=== PATIENT | female | born 1970 | race Caucasian/White ===

== ENCOUNTER 2017-12-06 03:58 | Emergency (ER) | payer OTHER, SELFPAY ==
[2017-12-06 04:00] VITALS: BP 167/86; PULSE 107; RESP 17; TEMP 37.1; O2SAT 99; BMI 35.0
--- NOTE | 2017-12-06 04:13 | EKG12_ITS ---
Test Reason : DIZZINESS Blood Pressure : / mmHG Vent. Rate : 086 BPM Atrial Rate : 086 BPM P-R Int : 152 ms QRS Dur : 078 ms QT Int : 384 ms P-R-T Axes : 041 025 031 degrees QTc Int : 459 ms Normal sinus rhythm Normal ECG Confirmed by RADHIKA PADILLA, GERRY ([id number]), photography editor DAMIR WINTER ([id number]) on 12/08/2017 2:26:26 PM Referred By: JOE Confirmed By:GERRY GARRIDO MD
--- NOTE | 2017-12-06 04:15 | RAD_ITS ---
STUDY: X-RAY CHEST REASON FOR EXAM: Female, 47 years old. Chest pain TECHNIQUE: Single AP portable view of the chest. COMPARISON: 09/21/2013 FINDINGS: The lungs are clear and expanded. There is no demonstrated pleural abnormality. Normal size heart. Normal mediastinum and quynh. Normal visualized pulmonary arteries. Normal visualized aortic arch and descending thoracic aorta. Normal visualized thoracic spine. Normal visualized ribs, clavicles, and shoulders. There is no demonstrated abnormality of the visualized soft tissue structures of the upper abdomen. RAD/Chest 1 View (Portable) IMPRESSION: Normal x-ray examination of the chest. Electronically Signed: Eduardo Grider DO at 4:31 EDT Tel , Service support ,
[2017-12-06 04:19] VITALS: BP 155/64; PULSE 76; RESP 16; O2SAT 99
[2017-12-06] MEDS: 0.9% Normal Saline 1,000 ML 150 ML IV (04:24)
[2017-12-06 04:27] LABS: Absolute Lymphocyte Count 1.95 X10^3/ul (0.83-4.51); Basophil# 0.04 X10^3/uL; Basophil% 0.6 % (0-1); Eosinophils% 4.4 % (0-5); Hematocrit 40.9 % (37-47); Hemoglobin 13.8 g/dl (12.0-15.0); Lymphocyte # 1.95 X10^3/ul (4.0); Lymphocyte % 28.8 % (19-41); Mean Corp Hgb Conc 33.7 g/gl (32-36); Mean Corpuscular Hgb 30.3 pg (27.0-32.0); Mean Corpuscular Volume 89.9 fL (81-99); Mean Platelet Vol. 10.9 fl (6.2-12.0); Monocyte# 0.48 X10^3/uL; Monocyte% 7.1 % (0-10); Neutrophil # 3.99 X10^3/uL (2.7-7.7); Platelet Count 273 K/mm3 (150-450); RBC Distribution Width CV 12.3 % (11.6-14.6); Red Blood Count 4.55 M/mm3 (4.2-5.4); White Blood Count 6.8 K/mm3 (4.4-11.0)
[2017-12-06 04:39] LABS: POSITIVE COUNT NO; POSITIVE DIFFERENTIAL NO; POSITIVE MORPHOLOGY NO
[2017-12-06 04:50] LABS: Anion Gap 11 (5-15); BUN 17 mg/dL (7-18); BUN/Creat Ratio 22.2 RATIO (10-20); Calcium,Total 9.9 mg/dL (8.5-10.1); Chloride 99 mmol/L (98-107); Creatinine, Serum 0.77 mg/dL (0.55-1.02); EST Glomerular Filtration Rate 85 mL/min (>60); Est Glom Filt Rate - Afr Amer 103 mL/min (>60); Estimated Creatinine Clearance 83.64 ml/min; Glucose 183 mg/dL (74-106); Potassium 3.5 mmol/L (3.5-5.1); Sodium Level 137 mmol/L (136-145); Thyroid Stim Hormone (TSH) 1.71 uIU/mL (0.358-3.74)
[2017-12-06 05:20] VITALS: BP 134/82; PULSE 79; RESP 12; O2SAT 96
--- NOTE | 2017-12-06 05:34 | ED.VISSUMM ---
- ER Visit Summary Date of Service: 12/06/17 Chief Complaint: Chest tightness, dizzy History of Present Illness: The patient is a 47 F who states she was at work tonight and developed lightheadedness and mild nausea. She checked her blood pressure noted it was elevated. She then developed some mild chest tightness. Patient has a history of diabetes, hypertension, high cholesterol, kidney stones, back pain. She was seen a few years ago with palpitations but noted that an event monitor did not reveal any arrhythmias. Patient had just eaten prior to this episode this evening. Physical Examination: Blood pressure on arrival is 167/86, temperature 98.8, heart rate 107, respiratory rate 17, pulse ox 99% on room air. Patient was observed ambulating to the room without difficulty. Head neck examination is unremarkable. Heart is regular rate and rhythm with a heart rate of 89 at the time of my exam. Lung sounds are clear. Abdomen is soft and nontender. Extremity examination reveals no calf tenderness or edema. Neuro exam is unremarkable. Test Results: EKG is sinus 86 with no sign of acute ischemia. CBC and chemistry studies significant only for glucose of 183. Troponin is less than 0.015. TSH is normal. Portable chest x-ray is normal. Emergency Department Course and Treatment: Patient is given IV fluids. On repeat evaluation she is resting comfortably. Blood pressure is currently 134/82 with a heart rate of 79. At this time patient feels improved. She will be discharged home with her at this time. She is to follow-up with her primary care physician and return for any worsening symptoms or other concerns. Treatment Plan: [] Disposition: Discharge Impression: 1. Atypical chest pain 2. Lightheadedness, improved This note was generated with [employer] dictation software. It may contain incorrect words, spelling, and punctuation that were not noted in review of the chart prior to signing ED Disposition - Plan for ED Patient: Chief Complaint: Dizziness Referrals: Leiws Snell MD [Primary Care Provider] -
--- NOTE | 2017-12-06 05:37 | ED.DCSUM_ITS ---
- ER Visit Summary Date of Service: 12/06/17 Chief Complaint: Chest tightness, dizzy History of Present Illness: The patient is a 47 F who states she was at work tonight and developed lightheadedness and mild nausea. She checked her blood pressure noted it was elevated. She then developed some mild chest tightness. Patient has a history of diabetes, hypertension, high cholesterol, kidney stones , back pain. She was seen a few years ago with palpitations but noted that an event monitor did not reveal any arrhythmias. Patient had just eaten prior to this episode this evening. Physical Examination: Blood pressure on arrival is 167/86, temperature 98.8, heart rate 107, respiratory rate 17, pulse ox 99% on room air. Patient was observed ambulating to the room without difficulty. Head neck examination is unremarkable. Heart is regular rate and rhythm with a heart rate of 89 at the time of my exam. Lung sounds are clear. Abdomen is soft and nontender. Extremity examination reveals no calf tenderness or edema. Neuro exam is unremarkable. Test Results: EKG is sinus 86 with no sign of acute ischemia. CBC and chemistry studies significant only for glucose of 183. Troponin is less than 0.015. TSH is normal. Portable chest x-ray is normal. Emergency Department Course and Treatment: Patient is given IV fluids. On repeat evaluation she is resting comfortably. Blood pressure is currently 134/ 82 with a heart rate of 79. At this time patient feels improved. She will be discharged home with her at this time. She is to follow-up with her primary care physician and return for any worsening symptoms or other concerns. Treatment Plan: [] Disposition: Discharge Impression: 1. Atypical chest pain 2. Lightheadedness, improved This note was generated with [employer] dictation software. It may contain incorrect words, spelling, and punctuation that were not noted in review of the chart prior to signing ED Disposition - Plan for ED Patient: Chief Complaint: Dizziness Referrals: Lewis Snell MD [Primary Care Provider] -
--- NOTE | 2017-12-06 05:37 | ED.DEP ---
ED Disposition - Plan for ED Patient: Disposition: Home or Assisted Living Chief Complaint: Dizziness Instructions: ED Chest Pain Atypical Unkn Cause Referrals: Lewis Snell MD [Primary Care Provider] - 1 Week
[2017-12-06 05:48] VITALS: BP 134/81; PULSE 95; RESP 17; O2SAT 96
== END 2017-12-06 05:49 | disposition home or self-care (01) ==
PROVIDERS: Emergency Provider Emergency Medicine; Family Provider Family Medicine; PCP Family Medicine
DX: R07.89 Other chest pain (principal); R42 Dizziness and giddiness; E11.9 Type 2 diabetes mellitus without complications; I10 Essential (primary) hypertension; E78.00 Pure hypercholesterolemia, unspecified; R11.0 Nausea
CPT/HCPCS: 71045; 80048; 84443; 84484; 85025; 93005; 99284; J7030; A4216

== ENCOUNTER → 2018-03-10 10:27 | Outpatient (CLI) | payer OTHER, SELFPAY ==
--- NOTE | 2018-03-10 10:29 | BI_ITS ---
MAMMOGRAPHY - BILATERAL SCREENING REASON FOR EXAM: Female, 48 years old. Routine annual screening examination. PERTINENT HISTORY: Grandmother with breast cancer. TECHNIQUE: Digital bilateral breast nishant (3D mammographic acquisition) in the CC and MLO projections. 2-D mediolateral oblique (MLO) and craniocaudad (CC) views of both breasts were obtained. CAD: Full Field Digital Mammography with Computer Added Detection was performed. COMPARISON: Comparison is made with prior study dated February 25, 2017 and January 10, 2016. FINDINGS: Breast Composition: The breasts are almost entirely fatty. There are no dominant masses or suspicious calcifications. Stable small benign-appearing bilateral axillary No other significant abnormalities are identified. There has been no significant change since the prior study. BI/SCREENING MAMM (CAD), BILAT IMPRESSION: Stable bilateral screening mammogram. Yearly follow-up mammogram recommended. (A) ASSESSMENT CATEGORY: BIRADS Category 2: Benign. A letter regarding these results will be sent to the patient by the facility within 30 days. Approximately 10% of breast cancers are not detected by mammography. A normal mammogram should not delay biopsy of a clinically suspicious abnormality. [id number] Electronically Signed: Monico Neil MD at 15:23 EST Tel [phone], Service support ,
== END ==
PROVIDERS: Family Provider Family Medicine; PCP Family Medicine; Visit Provider Obstetrics & Gynecology
DX: Z12.31 Encounter for screening mammogram for malignant neoplasm of breast (principal)
CPT/HCPCS: 77063; 77067

== ENCOUNTER → 2019-04-17 10:41 | Outpatient (CLI) | payer OTHER, SELFPAY ==
--- NOTE | 2019-04-17 10:43 | BI_ITS ---
MAMMOGRAPHY - BILATERAL SCREENING REASON FOR EXAM: Female, 49 years old. Routine annual screening examination. PERTINENT HISTORY: Grandmother with breast cancer. TECHNIQUE: Digital bilateral breast bernie (3D mammographic acquisition) in the CC and MLO projections. 2-D mediolateral oblique (MLO) and craniocaudad (CC) views of both breasts were obtained. CAD: Full Field Digital Mammography with Computer Added Detection was performed. COMPARISON: Comparison is made with prior study dated March 10, 2018 and February 25, 2017. FINDINGS: Breast Composition: The breasts are almost entirely fatty. There are no dominant masses or suspicious calcifications. No other significant abnormalities are identified. There has been no significant change since the prior study. BI/SCREEN MAMM (CAD) W/BERNIE BILAT IMPRESSION: Stable bilateral screening mammogram. Yearly follow-up mammogram recommended. (A) ASSESSMENT CATEGORY: BIRADS Category 1: Negative. A letter regarding these results will be sent to the patient by the facility within 30 days. Approximately 10% of breast cancers are not detected by mammography. A normal mammogram should not delay biopsy of a clinically suspicious abnormality. [id number] Electronically Signed: Monico Neil, at 12:21 EST , Service support ,
== END ==
PROVIDERS: Family Provider Family Medicine; PCP Family Medicine; Referring Provider Obstetrics & Gynecology; Visit Provider Obstetrics & Gynecology
DX: Z12.31 Encounter for screening mammogram for malignant neoplasm of breast (principal)
CPT/HCPCS: 77063; 77067

== ENCOUNTER → 2020-04-18 10:37 | Outpatient (CLI) | payer OTHER, SELFPAY ==
--- NOTE | 2020-04-18 10:38 | BI_ITS ---
MAMMOGRAPHY - BILATERAL SCREENING REASON FOR EXAM: Female, 50 years old. Routine annual screening examination. PERTINENT HISTORY: Non-contributory. TECHNIQUE: Digital bilateral breast bernie (3D mammographic acquisition) in the CC and MLO projections. 2-D mediolateral oblique (MLO) and craniocaudad (CC) views of both breasts were obtained. CAD: Full Field Digital Mammography with Computer Added Detection was performed. COMPARISON: Comparison is made with prior study dated 04/17/2019 and 03/10/2018. FINDINGS: Breast Composition: The breasts are almost entirely fatty. There are no dominant masses or suspicious calcifications. Stable small benign-appearing bilateral axillary lymph nodes. No other significant abnormalities are identified. There has been no significant change since the prior study. BI/SCRN MAMM (CAD)W/BERNIE BILAT IMPRESSION: Stable bilateral screening mammogram. Yearly follow-up mammogram recommended. (A) ASSESSMENT CATEGORY: BIRADS Category 2: Benign. A letter regarding these results will be sent to the patient by the facility within 30 days. Approximately 10% of breast cancers are not detected by mammography. A normal mammogram should not delay biopsy of a clinically suspicious abnormality. [id number] Electronically Signed: Monico Neil MD at 12:10 EST , Service support ,
== END ==
PROVIDERS: PCP Family Medicine; Referring Provider Student in an Organized Health Care Education/Training Program; Visit Provider Student in an Organized Health Care Education/Training Program
DX: Z12.31 Encounter for screening mammogram for malignant neoplasm of breast (principal)
CPT/HCPCS: 77063; 77067

== ENCOUNTER → 2020-05-21 15:07 | Outpatient (CLI) | payer OTHER, SELFPAY | PROVIDERS: PCP Family Medicine; Referring Provider Student in an Organized Health Care Education/Training Program; Visit Provider Student in an Organized Health Care Education/Training Program | DX: Z00.00 Encounter for general adult medical examination without abnormal findings (principal) ==

== ENCOUNTER 2020-11-16 14:25 | Emergency (ER) | payer OTHER, SELFPAY ==
[2020-11-16 14:26] VITALS: BP 160/84; PULSE 128; RESP 18; TEMP 36.6; O2SAT 94; BMI 35.5
[2020-11-16 17:33] VITALS: BP 145/92; PULSE 114; RESP 16; O2SAT 92
--- NOTE | 2020-11-16 17:55 | ED.VIS.FEGU ---
HPI HPI - Female History of Present Illness Chief Complaint: Female C/O Informant: patient Pain Pain: Positive for Vulvar Pain Onset: Days (2) Context: Gradual Onset Timing: Continuous Quality: Positive for Burning Worsened by: - (Sitting) Bleeding Issue: Negative for Vaginal bleeding, Passing clots and Passing tissue Vaginal Discharge Quality: Positive for Thin Associated Symptoms Associated Symptoms: Positive for Dysuria Narrative Narrative: Patient presents with possible yeast infection that has been getting worse over the past 2 days. Patient states her perineal area has become swollen and itching. Patient admits to watery discharge. Patient states she has been using clotrimazole cream with minimal relief. Patient admits to some dysuria but denies any hematuria or frequency. Patient states [facility] and had a urinalysis done which was negative. Patient states that they were going to order her a dose of Diflucan. Patient was upset because it did not look or do any cultures. Patient then came to the emergency department. [facility] Medical History (Updated 11/16/20 @ 19:[address] Ren Dalton DO) Diabetes Edema Hypertension Home Medications hydrochlorothiazide 25 mg PO DAILY 07/11/13 [History Last Taken Unknown] losartan [Cozaar] 100 mg PO DAILY 07/11/13 [History Last Taken Unknown] metformin 500 mg PO TID 07/11/13 [History Last Taken Unknown] dulaglutide [Trulicity] 1.5 mg SUBCUT QWEEK 11/16/20 [History Last Taken Unknown] fluconazole [Diflucan] 150 mg PO DAILY #1 tab 11/16/20 [Rx Last Taken Unknown] glimepiride 4 mg PO BID 11/16/20 [History Last Taken Unknown] Allergy/AdvReac Type Severity Reaction Status Date / Time No Known Allergies Allergy Verified 11/16/20 13:16 Surgical History (Updated 11/16/20 @ 17:[address] Ren Dlaton DO) H/O dilation and curettage Social History Smoking Status: Never smoker ROS ROS ED Constitutional Constitutional ED: Denies chills or fever(s) Eyes Eyes: Denies blurry vision or change in vision ENT ENT ED: Denies rhinorrhea or sore throat Cardiovascular Cardiovascular: Denies chest pain or palpitations Respiratory/Chest Respiratory/Chest: Denies cough or dyspnea Gastrointestinal Gastrointestinal: Denies nausea or vomiting Genitourinary Genitourinary ED: Reports dysuria; Denies hematuria Musculoskeletal Musculoskeletal: Denies back pain or neck pain Integumentary Denies abscess or rash Neurologic Neurologic: Reports headache(s); Denies weakness Allergic/Immunologic Allergic/Immunologic ED: Denies mouth swelling or urticaria EXAM Physical Exam Const Vital Signs: 11/16/20 14:26 11/16/20 17:33 Temperature 98 F Temperature Source Temporal Pulse Rate 128 H 114 H Respiratory Rate 18 16 Blood Pressure 160/84 H 145/92 H Blood Pressure Mean 109 109 Pulse Ox 94 92 Oxygen Delivery Method Room Air Room Air Positive well nourished, well developed and obese General Appearance ED: well developed Nutritional Appearance: obese HEENT Reports moist mucous membranes Neck supple and no JVD Resp normal respiratory effort and clear to auscultation bilaterally Cardio regular rate, regular rhythm and no murmurs GI normal to inspection, nondistended, normoactive bowel sounds, soft to palpation and non-tender Palpation: soft Speculum Exam - Vagina: vaginal swelling and vaginal discharge white Extremity normal to inspection General Extremety ED: Negative for edema or tenderness General Extremity: Negative for edema Neuro oriented x3, CN's II-XII intact bilaterally and no sensory deficits noted Sensorium / Orientation: alert Motor Exam: strength 5/5 throughout Psych mental status grossly normal Skin no rashes or lesions noted MDM MDM MDM Narrative Medical decision making narrative: CBC and comprehensive metabolic profile were obtained and were within normal limits. FLORES prep was obtained. There are no fungal elements seen. However, on vaginal exam there was some mild thick white vaginal discharge. This appeared to be consistent with vaginal candidiasis. Patient was given a dose of Diflucan here. Patient was given a prescription for 1 Diflucan tablet to take in a week if her symptoms are persistent. Patient was instructed to follow-up with her primary care physician in 5 to 7 days. Patient understood and was agreeable with the plan. All questions were answered. Lab Data Attestation: I reviewed the patient's lab results. Labs: Laboratory Results - last 24 hr 11/16/20 11/16/20 17:56 17:56 WBC 12.0 H RBC 4.67 Hgb 13.9 Hct 42.3 MCV 90.6 MCH 29.8 MCHC 32.9 RDW Std Deviation 39.7 RDW Coeff of Eyad 12.0 Plt Count 305 MPV 11.3 Immature Gran % (Auto) 0.200 Neut % (Auto) 68.7 Lymph % (Auto) 17.2 L Chambers % (Auto) 6.5 Eos % (Auto) 7.2 H Baso % (Auto) 0.2 Absolute Neuts (auto) 8.3 H Absolute Lymphs (auto) 2.06 Nucleated RBC % 0 Sodium 133 L Potassium 3.7 Chloride 97 L Carbon Dioxide 28.0 Anion Gap 8 BUN 12 Creatinine 0.68 Estim Creat Clear Calc 91.63 Est GFR (MDRD) Af Amer 117 Est GFR (MDRD) Non-Af 97 BUN/Creatinine Ratio 17.6 Glucose 185 H Calcium 10.2 H Total Bilirubin 1.00 AST 84 H ALT 118 H Alkaline Phosphatase 74 Total Protein 7.5 Albumin 3.6 Globulin 3.9 Albumin/Globulin Ratio 0.9 Discharge Plan Triage Chief Complaint: Female C/O ED Provider: Ren Dalton Dx/Rx/DC Orders Clinical Impression: Vaginal candidiasis Instructions: ED CORNELIA VAGINITIS Prescriptions: New fluconazole [Diflucan] 150 mg tablet 150 mg PO DAILY Qty: 1 RF: 0 No Action metformin 500 MG tablet 500 mg PO TID RF: 0 hydrochlorothiazide 25 MG tablet 25 mg PO DAILY RF: 0 losartan [Cozaar] 100 MG tablet 100 mg PO DAILY RF: 0 glimepiride 4 mg Tablet 4 mg PO BID RF: 0 Trulicity 1.5 mg/0.5 mL Pen Injector 1.5 mg SUBCUT QWEEK RF: 0 Primary Care Provider: Lewis Snell Referrals: Lewis Snell MD [Primary Care Provider] - 5-7 Days Disposition Disposition: Home, Self Care
[2020-11-16 18:18] LABS: Absolute Lymphocyte Count 2.06 X10^3/uL (0.83-4.51); Absolute Neutrophil Count 8.3 X10^3/uL (2.0-7.7); Basophil# 0.02 X10^3/uL; Basophil% 0.2 % (0-1); Eosinophil# 0.87 X10^3/uL; Eosinophils% 7.2 % (0-5); Hematocrit 42.3 % (37-47); Hemoglobin 13.9 g/dL (12.0-15.0); Lymphocyte # 2.06 X10^3/ul (0.83-4.51); Lymphocyte % 17.2 % (19-41); Mean Corp Hgb Conc 32.9 g/dL (32-36); Mean Corpuscular Hgb 29.8 pg (27.0-32.0); Mean Corpuscular Volume 90.6 fL (81-99); Mean Platelet Vol. 11.3 fl (6.2-12.0); Monocyte# 0.78 X10^3/uL; Monocyte% 6.5 % (0-10); NRBC Flagged by Analyzer 0 % (0-5); Neutrophil # 8.25 X10^3/uL (2.7-7.7); Neutrophil % 68.7 % (47-70); Platelet Count 305 K/mm3 (150-450); RBC Distribution Width SD 39.7 fl (35.1-43.9); Red Blood Count 4.67 M/mm3 (4.2-5.4)
[2020-11-16 18:35] LABS: ALB/GLOB Ratio 0.9 RATIO (0.9-2.4); AST(SGOT) 84 U/L (15-37); Alanine Aminotransfer ALT/SGPT 118 U/L (13-56); Albumin, Serum 3.6 g/dL (3.2-5.0); Alkaline Phosphatase 74 U/L (45-117); Anion Gap 8 (5-15); BUN 12 mg/dL (7-18); BUN/Creat Ratio 17.6 RATIO (10-20); Calcium,Total 10.2 mg/dL (8.5-10.1); Chloride 97 mmol/L (98-107); Creatinine, Serum 0.68 mg/dL (0.55-1.02); EST Glomerular Filtration Rate 97 mL/min (>60); Est Glom Filt Rate - Afr Amer 117 mL/min (>60); Estimated Creatinine Clearance 91.63 ml/min; Globulin 3.9 g/dL (2.2-4.2); Glucose 185 mg/dL (74-106); Potassium 3.7 mmol/L (3.5-5.1); Protein, Total 7.5 g/dL (6.4-8.2); Sodium Level 133 mmol/L (136-145)
[2020-11-16] MEDS: FLUCONAZOLE 150 MG TABLET PO (19:17)
[2020-11-16 19:19] VITALS: RESP 16
== END 2020-11-16 19:19 | disposition home or self-care (01) ==
PROVIDERS: Emergency Provider Emergency Medicine; PCP Family Medicine
DX: B37.3 Candidiasis of vulva and vagina (principal); E11.9 Type 2 diabetes mellitus without complications; I10 Essential (primary) hypertension; Z79.84 Long term (current) use of oral hypoglycemic drugs; Z79.899 Other long term (current) drug therapy; E66.9 Obesity, unspecified
CPT/HCPCS: 36415; 80053; 85025; 87210; 99283

== ENCOUNTER → 2020-11-17 16:22 | Outpatient (CLI) | payer OTHER, SELFPAY ==
[2020-11-17 16:24] LABS: Mucous, Urine 0 SEEN /hpf (<or=2+)
[2020-11-17 16:33] LABS: Color, Urine Yellow (Yellow); Glucose, Dipstick 1000 mg/dl (Normal); Ketone-Dipstick 5 mg/dl (Negative); Leukocyte Esterase-Dipstick 25 /ul (Negative); Nitrite-Dipstick Negative (Negative); Occult Blood-Urine Negative /ul (Negative); Protein-Dipstick 15 mg/dl (Negative); Specific Gravity, Urine 1.015 (1.002-1.030); Urine Bilirubin Dipstick Negative (Negative); Urine Clarity Cloudy (Clear); Urine Urobilinogen Normal (Normal)
[2020-11-17 16:56] LABS: Bacteria RARE /hpf (None Seen); White Blood Cells 0-5 SEEN /hpf (0-5)
[2020-11-17 16:58] LABS: Red Blood Cells-Urine 0-5 SEEN /hpf (0-5)
[2020-11-17 17:00] LABS: Squamous Epithelial Cells - UA 0-5 SEEN /hpf (5-10)
== END ==
PROVIDERS: PCP Family Medicine; Referring Provider Physician Assistant Medical; Visit Provider Physician Assistant Medical
DX: B37.3 Candidiasis of vulva and vagina (principal)
CPT/HCPCS: 81001

== ENCOUNTER 2021-04-22 10:03 | Outpatient (CLI) | payer OTHER, SELFPAY ==
--- NOTE | 2021-04-22 10:07 | BI_ITS ---
MAMMOGRAPHY - BILATERAL SCREENING REASON FOR EXAM: Female, 51 years old. Routine annual screening examination. PERTINENT HISTORY: Grandmother with breast cancer. TECHNIQUE: Digital bilateral breast bernie (3D mammographic acquisition) in the CC and MLO projections. 2-D mediolateral oblique (MLO) and craniocaudad (CC) views of both breasts were obtained. CAD: Full Field Digital Mammography with Computer Added Detection was performed. COMPARISON: Comparison is made with prior study dated 04/10/2020 and 04/17/2019. FINDINGS: Breast Composition: The breasts are almost entirely fatty. There are no dominant masses or suspicious calcifications. Stable small benign-appearing bilateral axillary lymph nodes. No other significant abnormalities are identified. There has been no significant change since the prior study. BI/SCRN MAMM (CAD)W/BERNIE BILAT IMPRESSION: Stable bilateral screening mammogram. Yearly follow-up mammogram recommended. (A) ASSESSMENT CATEGORY: BIRADS Category 2: Benign. A letter regarding these results will be sent to the patient by the facility within 30 days. Approximately 10% of breast cancers are not detected by mammography. A normal mammogram should not delay biopsy of a clinically suspicious abnormality. [id number] Electronically Signed: Monico Neil MD at 11:04 EST ,
== END 2021-04-22 23:59 | disposition short-term general hospital (02) ==
LOC: OPBI 10:05
PROVIDERS: PCP Family Medicine; Referring Provider Student in an Organized Health Care Education/Training Program; Visit Provider Student in an Organized Health Care Education/Training Program
DX: Z12.31 Encounter for screening mammogram for malignant neoplasm of breast (principal); Z80.3 Family history of malignant neoplasm of breast
CPT/HCPCS: 77063; 77067

== ENCOUNTER 2021-06-05 05:26 | Day surgery (SDC) | payer OTHER, SELFPAY ==
--- NOTE | 2021-05-30 09:51 | EKG12_ITS ---
Test Reason : PRE OP Blood Pressure : / mmHG Vent. Rate : 095 BPM Atrial Rate : 095 BPM P-R Int : 160 ms QRS Dur : 066 ms QT Int : 346 ms P-R-T Axes : 054 034 043 degrees QTc Int : 434 ms Normal sinus rhythm Septal infarct , age undetermined Abnormal ECG Confirmed by SIRIA PADILLA, TAN ([id number]), newspaper copy editor ARUNA BELLO ([id number]) on 05/30/2021 2:33:13 PM Referred By: MAGGY Confirmed By:TAN BEVERLY MD
[2021-05-30 11:11] LABS: Hemoglobin 15.2 g/dL (12.0-15.0); Mean Corp Hgb Conc 34.5 g/dL (32-36); Mean Corpuscular Hgb 30.7 pg (27.0-32.0); Mean Corpuscular Volume 88.9 fL (81-99); Mean Platelet Vol. 10.8 fl (6.2-12.0); Platelet Count 316 K/mm3 (150-450); RBC Distribution Width CV 12.1 % (11.6-14.6); RBC Distribution Width SD 39.8 fl (35.1-43.9); Red Blood Count 4.95 M/mm3 (4.2-5.4); White Blood Count 9.1 K/mm3 (4.4-11.0)
[2021-05-30 11:16] LABS: Magnesium 1.4 mg/dL (1.6-2.6)
[2021-05-30 11:20] LABS: Anion Gap 5 (5-15); BUN 11 mg/dL (7-18); BUN/Creat Ratio 15.6 RATIO (10-20); Chloride 99 mmol/L (98-107); Creatinine, Serum 0.71 mg/dL (0.55-1.02); EST Glomerular Filtration Rate 92 mL/min (>60); Est Glom Filt Rate - Afr Amer 112 mL/min (>60); Glucose 157 mg/dL (74-106); Potassium 3.9 mmol/L (3.5-5.1); Sodium Level 134 mmol/L (136-145)
[2021-05-30 11:28] LABS: Hemoglobin A1c 8.8 % (3.8-5.6)
[2021-06-05] VITALS (11 sets, daily range): BP systolic 118–149; BP diastolic 60–77; PULSE 91–105; RESP 14–18; TEMP 36.3–37.3; O2SAT 93–99; BMI 36.7
--- NOTE | 2021-06-05 | HYST_PTH ---
PATIENT: RODRIGUEZ BARGER [place] [facility] [place][id number] AGE/SX: 51/F ROOM: RE06/05/[address]: Dr. Meg Bruner, : 1970 BED: DIS: 06/05/2021 SPEC #: [id number] RECD: 06/05/21 12:50 STATUS: CRISTA PAPI #: [id number] NARCISO: 06/05/21 00:[address]: Meg Bruner DEPT: SURGICAL PATHOLOGY RECD BY: Checo Oneal ENTERED: 06/05/21 12:50 SP TYPE: HYSTERECT OTHR DR: Dr. Lewis Snell MD Tissues: Uterus, NOS Procedures: Surgery Specimen Level V HEADER OPERATION: ERAS, hysterectomy, TLH, cysto, bilateral salpingectomy, right oophorectomy PRE-OP DIAGNOSIS: Benign endometrial hyperplasia, persistent bleeding TISSUE SUBMITTED: Uterus, cervix, bilateral fallopian tubes and right ovary MICROSCOPIC DIAGNOSIS Uterus, hysterectomy: Cervix ? squamous metaplasia, mild chronic inflammation and nabothian cysts. Endometrium ? focal simple hyperplasia without atypia. Myometrium ? adenomyosis and leiomyoma. Right ovary ? corpus luteal cysts. Right fallopian tube - No pathologic change. Left ovary ? corpus luteal cysts. Left fallopian tube - No pathologic change. AM:[place] 06/06/2021 MICROSCOPIC DESCRIPTION Slides are reviewed. GROSS DESCRIPTION Received in fixative is one container labeled with the patient's name and designated uterus. The specimen consists of a uterus with attached cervix, attached right fallopian tube and ovary, attached left fallopian and detached left ovary. The uterus with cervix measures 9.5 x 6 x 4.5 cm and weighs 122 gm. The ectocervix is grossly unremarkable. The endocervical canal measures 3.5 cm in length and is grossly unremarkable. The triangular endometrial cavity measures 4.5 x 4.5 cm. The velvety, parmar endometrium measures up to 0.2 cm in thickness. A flat light parmar polyp measuring 1.2 x 0.5 cm in is present. The myometrium immediately beneath the polyp is not indurated. The myometrium measures 2.2 cm in average thickness and contains a firm, rubbery nodule measuring 0.6 cm and grossly consistent with leiomyoma. The crinkled, smooth, glistening right ovary measures 3 x 1.5 x 1 cm. The adjacent fallopian tube measures 4 cm in length and 0.7 cm in average diameter. No tubo-ovarian adhesions are seen. The detached left ovary is similar to the right ovary and measures 2.2 x 1.5 x 1 cm. The left fallopian is similar in appearance to the right fallopian tube and measures 4.5 cm in length and 0.6 cm in average diameter. Fitness Teacher sections are submitted in 11 cassettes as follows: 1 - anterior cervix, 2 - posterior cervix, 3 - endometrial polyp, 4 - anterior myometrial wall, 5 & 6 - anterior endometrium and adjacent myometrium (endometrium totally submitted), 7 - posterior myometrial wall, 8 & 9 - posterior endometrium and adjacent myometrium (endometrium totally submitted), 10 - right fallopian tube and ovary, 11 - left fallopian tube and ovary. / AM:[place] 06/05/2021 TC:5 CPT: 12785
[2021-06-05] MEDS: Acetaminophen 500 MG Tablet 1000 MG PO (06:23)
[2021-06-05] MEDS: Celecoxib 200 MG Capsule 400 MG PO (06:24)
[2021-06-05] MEDS: Gabapentin 600 MG Tablet PO (06:24)
[2021-06-05] MEDS: Lactated Ringers 1,000 ML 40 ML IV (06:30)
[2021-06-05] MEDS: Insulin Lispro 100 UNIT/ML INSULN.PEN SC ×2 (06:36→10:36)
[2021-06-05 06:51] LABS: Bedside Glucose 233 mg/dL (74-106)
--- NOTE | 2021-06-05 07:02 | HP.PCM.OB_ITS ---
History and Physical Date of Admission: 06/05/21 51 year old female 1 0 0 0 1, presented for total laparoscopic hysterectomy, bilateral salpingo-oophorectomy cystoscopy for history of benign hyperplasia with intermittent bleeding. MEDICAL HISTORY: 1. Diabetes mellitus type 2 2. Hypertension 3. History of nephrolithiasis ALLERGIES: NKDA MEDICATIONS HISTORY: 1. Colace 100 mg capsule 2. fiber 2 gram tablet, chewable 3. hydrochlorothiazide 25 mg tablet 4. losartan 100 mg tablet 5. Calcium Citrate + D 315-200 mg-unit tablet, occ 6. Fish Oil 100-160-1,000 mg capsule, daily 7. metformin 500 mg tablet, Two Tablets in the morning, one tablet at night 8. Trulicity 1.5 mg/0.5 mL subcutaneous pen injector, As Directed 9. fluoxetine 20 mg capsule, One pill by mouth once a day SURGICAL HISTORY: 1. 06/27/2012 hysteroscopy, D and C Shahla Grant MD 2. Lithotripsy 2006 MENSTRUAL HISTORY: LMP Known?- Approximate-Month KnownAmount/Duration - 2-3 days, Regularity - missed periods, Frequency - variable days, LMP - 09/19/20, Age Onset Menarche - 10 PAST PREGNANCIES: Total Pregnancies - 1; Full Term Pregnancies - 1; Premature - 0; Abortions, Induced - 0; Abortions, Spontaneous - 0; Ectopics - 0; Multiple Births - 0; Living Children - 1 FAMILY HISTORY: 1. Diabetes 2. Cardiovascular disease SOCIAL HISTORY: Alcohol Use - rare Smoking - denies smoking Drug Use - denies REVIEW OF SYSTEMS: GENERAL - Denies fever, or chills SKIN - Denies skin changes EYES - Denies visual changes EARS - Denies difficulty hearing NOSE - Denies nasal congestion or bleeding MOUTH - Denies sore throat or difficulty swallowing NECK - Denies pain or swelling RESPIRATORY - Denies shortness of breath or wheezing CARDIOVASCULAR - Denies palpitations or chest pain GASTROINTESTINAL - Denies nausea, vomiting, diarrhea, constipation GENITOURINARY - Denies dysuria, frequency of urination, incontinence of urine MUSCULOSKELETAL - Denies joint or muscle pain NEUROLOGICAL - Denies localized numbness or weakness PSYCHIATRIC - On medications ENDOCRINE - Denies heat or cold intolerance, weight loss or gain HEMATO-IMMUNOLOGIC - Denies excessive bleeding with cuts PHYSICAL EXAMINATION BP- 114/78 Sitting, Right arm, regular cuff Weight- 222.0 lbs Height- 65.25 inch BMI:36.66 CONSTITUTIONAL - NAD, well nourished, and well developed SKIN - No rash, lesions, or ulcers HEENT - Normocephalic, PERRLA, EOMI NECK - No nodes, no nuchal rigidity and thyroid normal size and texture LYMPH NODES - Palpation of lymph nodes in neck and groins within normal limits LUNGS - CTA x2 without wheezes, crackles or rales CARDIAC - Regular rate and rhythm without rubs, murmurs, or gallops ABDOMEN - Without hepatosplenomegaly, distention, masses, rebound, or guarding; normal bowel sounds; no hernias EXTREMITIES - No edema or calf tenderness NEUROLOGICAL - Cranial nerves II-XII grossly intact PSYCHIATRIC - A and O to time, place, person, mood and affect ASSESSMENT/PLAN History of benign hyperplasia in 2012, had been on micronor until November 2019. Has had intermittent menses/spotting since that time. EMB negative for hyperplasia. Will plan for Total laparoscopic hysterectomy, bilateral salpingo- oophorectomy cystoscopy for history of benign hyperplasia with intermittent bleeding. R/B/A discussed. R/B/A discussed. Risks include, but are not limited to: risk of bleeding to the point of transfusion, infection, injury to surrounding tissue (bowel/bladder requiring prolonged ventura use/major abdominal vessels), VTE, ICU admission. Pt aware and consented
[2021-06-05] MEDS: Lubricating Jelly 60 GM Tube 30 GM (07:16)
--- NOTE | 2021-06-05 07:21 | OP.PCM_ITS ---
Report of Operation Date of Procedure: 06/05/21 Pre-Operative Diagnosis: History of benign endometrial hyperplasia, persistent bleeding Post-Operative Diagnosis: History of benign endometrial hyperplasia, persistent bleeding Surgery/Procedure Performed:: Total Laparoscopic Hysterectomy, Bilateral Salpingectomy, Right Oophorectomy, Lysis of Adhesions, Cystoscopy Description of Surgical Findings:: Normal external genitalia. Minimal uterine descensus. Possible small umbilical hernia. Adhesions left bowel fat to left pelvic sidewall. Large Amount of Bowel Fat. Large omentum. Dissection, visualization, and uterine manipulation made difficult due to large amount of epiploic fat. Cystoscopy showing intact bladder dome and bilateral ureteral jets. Surgeon: Meg Bruner attorney general: B[place] Bruner Type of Anesthesia: General Specimen's removed: Uterus, cervix, bilateral fallopian tubes, right ovary Estimated Blood Loss (mL): 100cc Fluids Replaced: 1200cc Description of Procedure: Indication/risk/benefits: Total laparoscopic hyst erectomy, bilateral salpingo-oophorectomy cystoscopy for history of benign hyperplasia with intermittent bleeding. R/B/A discussed. R/B/A discussed. Risks include, but are not limited to: risk of bleeding to the point of transfusion, infection, injury to surrounding tissue (bowel/bladder requiring prolonged ventura use/major abdominal vessels), VTE, ICU admission. Procedure: Patient taken to the operating room and placed under general anesthesia. Patient placed in the dorsal lithotomy position and prepped and draped in the usual sterile fashion. Ventura catheter placed. Weighted speculum placed in posterior vagina and Landis retractor used to visualize the cervix. Anterior lip of the cervix grasped with single-tooth tenaculum. Cervix sequentially dilated. Uterus sounded 8 cm. Medium manipulator opened. Yesisf-xr-[id number] stitches placed at 3 and 9 o'clock position. Uterine manipulator placed. Gloves changed and attention turned to the anterior abdominal wall. 3 cm vertical skin inc ision made superior to the umbilicus at midline. Underlying subcutaneous tissue that dissected away from fascia bluntly using RP. Fascia grasped with 2 Xavi clamps. Incised medially with scalpel. Fascia tagged at each edge with suture. Peritoneum grasped with 2 RP clamps and incised medially with scalpel. Abdominal entry noted. Trocar placed. Abdomen insufflated, and abdominal entry confirmed with laparoscopy. Right and left lower quadrant trochars placed under direct visualization. Examination of the abdominal cavity noting above findings. Adhesions of epiploic fat dissected away from left pelvic sidewall and area of left tube and ovary using scissors. Left round ligament identified, coagulated and cut. Dissected anterior leaf of the broad ligament down towards the vesicouterine peritoneum, creating a bladder flap. Left fallopian tube grasped and mesosalpinx dissected freeing the fallopian tube towards the uterus and the cornua. Unable to clearly visualize the left IP ligament due to bowel adhesions, therefore decision to leave the ovary was made. Left utero-ovarian ligament coagulated and cut. Further dissection carried down the left side of the uterus towards the level of the cervix. Attention turned towards the right side of the uterus. Right round ligament transected with monopolar cautery. Vesicouterine peritoneum further dissected towards the left side. This allowed the bladder to fall away from the anterior cervix and colpotomy cup. Right IP ligament identified coagulated and cut. Dissected towards the right side of the uterus. It was noted at this time that the right ovary was adhesed along the side of the right uterus towards the cervix. Portion of the right ovary that was adhesed towards the pelvic sidewall was left during dissection due to difficult visualization. Bladder further dissected away from the anterior cervix using monopolar cautery and blunt dissection. Additional right lower quadrant trocar placed under direct visualization in order to assist in retracting bowel and bowel fat. Right uterine arteries identified coagulated and cut. Left uterine artery was also identified coagulated and cut. Uterus anteverted and posterior colpotomy started. Uterus retroverted and anterior colpotomy started as well. Colpotomy incision continued counterclockwise. Colpotomy completed. Uterus, cervix, bilateral fallopian tubes, right ovary removed through the vagina. Abdomen desufflated. Attention turned to the vagina, vaginal apex grasped with Allis clamps. Vaginal cuff then closed with a running stitch starting at both right and left apices, tying at midline. Attention then turned to the abdominal wall after gloves were changed. Abdomen reinsufflated. Pelvis suction irrigated. Portion of the right ovary was now able to be visualized fully, examined, grasped. Dissected away from the pelvic sidewall, coagulated and cut. Portion of the right ovary placed into an Endo Catch bag and removed through the supraumbilical trocar after scope was changed to a 5 and placed through lateral port. Some oozing noted at the vaginal cuff, FloSeal placed. Hemostasis noted. Insufflation stopped. Trochars removed. Cystoscopy completed, noting bilateral ureteral jets and an intact bladder dome. Skin closed with subcuticular stitch and skin glue. Supraumbilical fascial incision closed with a running stitch, skin then closed with a running subcuticular stitch and skin glue as well. At the end of the procedure all needle, lap, sponge counts were correct. Urine output: 400cc Complications None
--- NOTE | 2021-06-05 07:24 | PCM.DC ---
Discharge Instructions Diet Discharge Diet: No restrictions Activity Discharge Activity: Return to Normal Activity and May Shower May resume sexual activity in: 4-6 weeks Weight Bearing Status: Weight bearing as tolerated Lifting Restrictions: No greater than 25 pounds Dressing / Incision Call your doctor if your incision/area has: Continuous Slow Oozing, Increased Pain/ Swelling, Increased Redness, Foul Smelling Discharge and Swelling at the incision site Call your doctor if you observe: Fever of 101 or Higher, Change in Color, Inability to urinate, Using more than 1 pad per hour, Shortness of breath, Dizziness, Swelling in the ankles, Chest pain and Calf discomfort Cleanse incision/area with: Soap & Water Follow Up Care Please Follow Up With: Meg Bruner DO When: 2 week post operative visit Test Results: Test results from this visit will be discussed in further detail at your follow-up appointment, if applicable. Discharge Plan Admission Primary Reason for Your Visit: Total Hysterectomy Attending Provider: Meg Bruner Primary Care Provider: Lewis Snell Discharge Orders/Prescriptions Prescriptions: New oxycodone 5 mg tablet 5 mg PO Q6H PRN (Reason: pain (scale score 7-10)) 5 Days Qty: 24 RF: 0 Continued metformin 500 MG tablet 500 mg PO TID RF: 0 hydrochlorothiazide 25 MG tablet 25 mg PO DAILY RF: 0 losartan [Cozaar] 100 MG tablet 100 mg PO DAILY RF: 0 Trulicity 1.5 mg/0.5 mL Pen Injector 3 mg SUBCUT QWEEK RF: 0 multivitamin Tablet 1 tab PO DAILY RF: 0 ascorbic acid (vitamin C) [Vitamin C] 500 mg Tablet 500 mg PO DAILY RF: 0 docusate sodium [Stool Softener] 100 mg Capsule 100 mg PO DAILY RF: 0 albuterol sulfate [Ventolin HFA] 90 mcg/actuation HFA aerosol inhaler 90 mcg INHALATION PRN PRN (Reason: ASTHMA) RF: 0 fluoxetine 20 mg capsule 20 mg PO DAILY RF: 0 elderberry fruit 200 mg Capsule 200 mg PO PRN PRN (Reason: Cold Symptoms) RF: 0 cholecalciferol (vitamin D3) [Vitamin D3] 25 mcg (1,000 unit) Tablet,Chewable 25 mcg PO DAILY RF: 0 Probiotic 10 billion cell Capsule 10,000 mmu cells PO DAILY RF: 0 Referrals / Follow Up: Lewis Snell MD [Primary Care Provider] - Disposition Disposition (needs filled in before D/C Order can be placed): Home, Self Care
[2021-06-05] MEDS: Cefazolin 2 GM in 0.9% Normal Saline 100 ML IV (07:28)
[2021-06-05] MEDS: Ondansetron 4 MG/2 ML Vial IV (10:00)
[2021-06-05 10:41] LABS: Bedside Glucose 280 mg/dL (74-106)
== END 2021-06-05 23:59 | disposition home or self-care (01) ==
LOC: SDC 05:30 → AC 05:31
PROVIDERS: Anesthesiology; PCP Family Medicine; Referring Provider Student in an Organized Health Care Education/Training Program; Visit Provider Student in an Organized Health Care Education/Training Program
PROC: 0UT94ZZ Resection of Uterus, Percutaneous Endoscopic Approach (ICD-10-PCS; CPT 58262; principal; 2021-06-05 07:10)
DX: Z30.2 Encounter for sterilization (principal); E11.9 Type 2 diabetes mellitus without complications; N88.8 Other specified noninflammatory disorders of cervix uteri; N85.01 Benign endometrial hyperplasia; N83.11 Corpus luteum cyst of right ovary; N83.12 Corpus luteum cyst of left ovary; J45.909 Unspecified asthma, uncomplicated; K21.9 Gastro-esophageal reflux disease without esophagitis; I10 Essential (primary) hypertension; Z79.84 Long term (current) use of oral hypoglycemic drugs; Z79.899 Other long term (current) drug therapy
CPT/HCPCS: 58262; 00944; 36415; 80048; 82962; 83036; 83735; 85027; 86850; 86900; 86901; 87426; 88307; 93005; C9803; J7120; J2405

== ENCOUNTER → 2022-08-13 | Outpatient (CLI) | payer OTHER, SELFPAY ==
--- NOTE | 2022-08-13 10:42 | BI_ITS ---
MAMMOGRAPHY - BILATERAL SCREENING REASON FOR EXAM: Female, 52 years old. Routine annual screening examination. PERTINENT HISTORY: Grandmother with breast cancer. TECHNIQUE: Digital bilateral breast bernie (3D mammographic acquisition) in the CC and MLO projections. 2-D mediolateral oblique (MLO) and craniocaudad (CC) views of both breasts were obtained. CAD: Full Field Digital Mammography with Computer Added Detection was performed. COMPARISON: Mammogram from 04/22/2021, 04/18/2020. FINDINGS: Breast Composition: There are scattered areas of fibroglandular density. There are grouped microcalcifications in the right upper outer breast, posterior depth, approximately 18 cm posterior to the nipple which appear to have increased in number since previous studies. Further assessment with spot magnification views is recommended. No suspicious masses. No other significant abnormalities. BI/SCRN MAMM (CAD)W/BERNIE BILAT IMPRESSION: Further imaging evaluation recommended, as described above. (E) Recall Side: Right Breast ASSESSMENT CATEGORY: BIRADS Category 0: Incomplete. Need additional imaging evaluation. A letter regarding these results will be sent to the patient by the facility within 30 days. Approximately 10% of breast cancers are not detected by mammography. A normal mammogram should not delay biopsy of a clinically suspicious abnormality. Electronically Signed: Ta Phelps DO at 11:24 EDT ,
== END | disposition home or self-care (01) ==
LOC: OPBI 10:40
PROVIDERS: PCP Family Medicine; Referring Provider Student in an Organized Health Care Education/Training Program; Visit Provider Student in an Organized Health Care Education/Training Program
DX: Z12.31 Encounter for screening mammogram for malignant neoplasm of breast (principal)
CPT/HCPCS: 77063; 77067

== ENCOUNTER → 2022-08-28 | Outpatient (CLI) | payer OTHER, SELFPAY ==
--- NOTE | 2022-08-28 09:32 | BI_ITS ---
MAMMOGRAPHY - UNILATERAL DIAGNOSTIC: RIGHT BREAST REASON FOR EXAM: Female, 52 years old. Abnormal screening mammogram. PERTINENT HISTORY: Grandmother with breast cancer. TECHNIQUE: Compression magnification spot views of the right breast in the mediolateral oblique and craniocaudad projections were obtained. CAD: Full Field Digital Mammography with Computer Added Detection was performed. COMPARISON: Comparison is made with prior study dated August 13, 2022. FINDINGS: Breast Composition: There are scattered areas of fibroglandular density. There are no dominant masses or suspicious calcifications. The cluster microcalcification is once again seen. Biopsy recommended. No other significant abnormalities are identified. BI/DIAG MAMM W/CAD, UNILAT IMPRESSION: Cluster of microcalcification is once again seen in the upper outer quadrant of the right breast. Biopsy recommended. ASSESSMENT CATEGORY: BIRADS Category 4: Suspicious - Biopsy Should Be Considered. A letter regarding these results will be sent to the patient by the facility within 30 days. Approximately 10% of breast cancers are not detected by mammography. A normal mammogram should not delay biopsy of a clinically suspicious abnormality. Electronically Signed: Monico Neil MD at 10:45 EDT ,
--- NOTE | 2022-09-02 12:15 | BRBX_PTH ---
PATIENT: RODRIGUEZ BARGER LOC: [facility] U#:[id number] AGE/SX: 52/F ROOM: RE08/28/[address]: Dr. Meg Bruner DO : 1970 BED: DIS: 08/28/2022 SPEC #: [id number] RECD: 09/02/22 12:35 STATUS: CRISTA PAPI #: [id number] NARCISO: 09/02/22 12:[address]: Meg Bruner DEPT: SURGICAL PATHOLOGY RECD BY: Danilo Walsh ENTERED: 09/02/22 12:53 SP TYPE: BREAST BX OT DR: Dr. Lewis Snell MD Tissues: Right breast, NOS Procedures: Surgery Specimen Level IV HEADER OPERATION: Right stereotactic breast biopsy PRE-OP DIAGNOSIS: Right upper outer quadrant breast microcalcifications TISSUE SUBMITTED: Right breast core tissue ISCHEMIC TIME: 1 minute FIXATION TIME: 7.5 hours MICROSCOPIC DIAGNOSIS Right breast, upper outer quadrant microcalcifications, stereotactic core biopsy: Hyalinized fibroadenoma with focal calcifications. Negative for atypia or malignancy. See comment. SHANNON:anton 09/03/2022 COMMENT Correlation with clinical, radiologic findings and appropriate follow up are necessary. MICROSCOPIC DESCRIPTION Slides are reviewed. GROSS DESCRIPTION Received in fixative is one container labeled with the patient's name and designated right breast. The specimen consists of multiple elongated fragments of parmar-yellow fibroadipose tissue that in aggregate measure 5.0 x 3.0 x 0.3 cm. The entire specimen is submitted in two cassettes. / SHANNON:anton 09/02/2022 TC:1 CPT: 96962
== END | disposition home or self-care (01) ==
PROVIDERS: PCP Family Medicine; Referring Provider Student in an Organized Health Care Education/Training Program; Visit Provider Student in an Organized Health Care Education/Training Program
DX: R92.8 Other abnormal and inconclusive findings on diagnostic imaging of breast (principal); Z80.3 Family history of malignant neoplasm of breast
CPT/HCPCS: 77065; 88305

== ENCOUNTER → 2022-09-02 | Outpatient (CLI) | payer OTHER, SELFPAY ==
--- NOTE | 2022-09-02 12:25 | PCM.OPRPT ---
Report of Operation Date of Procedure: 09/02/22 Pre-Operative Diagnosis: Right breast microcalcifications Post-Operative Diagnosis: Same Surgery/Procedure Performed:: Stereotactic right breast biopsy Surgeon: Angela Jasso Type of Anesthesia: Local Specimen's removed: Right breast microcalcifications Description of Procedure: Procedure: Right stereotactic core biopsy Indications: 52 year-old female with microcalcifications in the upper outer of the right breast. Risk benefits were discussed the patient and she elected to proceed with stereotactic core biopsy with clip placement Description of procedure: Patient was brought into the mammography suite and laid prone on the stereotactic table. A timeout was completed verifying correct patient, procedure, site, specially, prior to beginning procedure. The right breast was prepped and draped in usual sterile fashion and using local anesthesia was obtained with 1% lidocaine with epi. Patient's right breast was positioned and placed into compression. Initial film showed calcifications are in the center of the compression paddle. 15? views were then taken. The calcifications were localized. The left breast was prepped draped in usual sterile fashion. An 8-gauge mammotome was set up according to the digital coordinates. The tract of the mammotome was anesthetized with local anesthesia and an incision was made with the 11 blade scalpel at the entry site. The mammotome was advanced to the prefire state. Pre-prior films were checked and verified. The mammotome was fired. Post fire films were also checked and verified. Biopsies were taken from 7:00 to 12:00. The specimen was x-rayed and a good representation of the calcifications were within the specimen. Mammotome clip was placed at the 12 o'clock position. The mammotome was removed from the breast. An additional films were taken which showed all calcifications were removed and a clip was in place. Pressure was held for hemostasis. Once hemostasis was assured the wound was dressed with Steri-Strips and OpSite. The patient tolerated the procedure well and was discharged from the mammography suite good condition. Complications NONE
== END | disposition home or self-care (01) ==
LOC: BIRAD 11:35
PROVIDERS: PCP Family Medicine; Referring Provider Surgery; Visit Provider Surgery
DX: R92.0 Mammographic microcalcification found on diagnostic imaging of breast (principal)
CPT/HCPCS: 19082; 19081; J7050; A4648